=== PATIENT | female | born 2000 | race Caucasian/White ===

== ENCOUNTER 2022-05-04 08:08 | Inpatient (IN) ==
[2022-05-04] MEDS ORDERED: LIDOCAINE 1% LOCAL 20 ML VIAL INFIL PRN (08:37)
[2022-05-04] MEDS ORDERED: OXYTOCIN 30 UNITS/500 ML BAG IV PRN ×3 (08:37→19:09)
--- NOTE | 2022-05-04 09:11 | History & Physical Report ---
Date of Service May 04, 2022 Assessment & Plan (1) Encounter for induction of labor: (2) Anxiety: (3) Tobacco smoking affecting : Plan - Patient admitted to labor and delivery for initiation of medical induction of labor - Patient remains significantly anxious regarding labor, IV placement, and epidural - Unsuccessful Mayo bulb placement yesterday - Patient COREY /-[address] Garrett 05/03/22 - COREY pending today per Dr. Conrad - Irregular contractions, thus oxytocin augmentation of labor will be started per protocol - Once contractions are progressing, will consider ROM - Will anticipate epidural as contractions arise, patient desirous of epidural pain management - Labs pending Admission and Anticipated Discharge Date Admission Date: May 04, 2022 History of Present Illness Chief Complaint: Induction of Labor Primary Care Provider: Link Gibson DO Subjective: Geovany is a 22 year old female currently at 40 5/7 determined by LMP 07/23/21 who presents to L&D for induction of labor. Mayo bulb was attempted last evening 05/03/22 but was unable to be completed d/t patient anxiety. Patient has a history of bipolar depression and anxiety w/ no active home management. Today, patient notes ongoing anxiety regarding labor. Complications: hx of smoking, hx of drug abuse (clean x 3 years) Reason for Induction/: post-date Movement: Yes Fluid Loss/ROM: No Bloody show/discharge: No External FHT and uterine monitor: Category 1, tracing reactive, good FHT variability (accelerations w/o decelerations), random contractions Last OB appointment: 05/01/22, regular care [employer] Hx: No abnormal paps, No hx of STIs Labs: Blood Type: A+ Antibody Screen: Negative Hg/Hct (today): Pending WBC/Plt (today): Pending Rubella: Immune RPR: Non-reactive Gonorrhea: Negative Chlamydia: Negative HIV: Negative HbSAg: Negative GBS: Negative Cff-DNA: Not performed Cf-SMA: Not performed ROS: - Denies fever, chills, sweats - Denies dyspnea or pleuritic pain - Denies chest pain, palpitations, or pressure - Denies breast pain - Denies dysuria - Denies headache or visual changes Allergies Allergy/AdvReac Type Severity Reaction Status Date / Time Iodinated Contrast Media Allergy Severe Anaphylaxis Verified 05/04/22 08:25 iodine Allergy Severe Anaphylaxis Verified 05/04/22 08:25 ondansetron [From Zofran] Allergy Severe Difficulty Verified 05/04/22 08:25 Breathing Home Medications Medication Instructions Recorded Confirmed Type albuterol sulfate 90 mcg/actuation 2 inh inhalation Q4H PRN shortness 05/13/20 05/01/22 Rx aerosol inhaler of breath or wheezing #1 ea prenat.vits,momo,[id number] 1 tab PO DAILY 09/17/21 05/01/22 History Patient History Medical History (Updated 05/04/22 @ 09:04 by Devi Doyle DO) Anxiety No meds- hx of meds in past Asthma seasonal allergy induced Cough Depression no meds at this time- used meds in past. 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) GERD (gastroesophageal reflux disease) Tums as needed Tachycardia no meds Surgical History History of tonsillectomy and adenoidectomy Family History Father WPW (Hkxwb-Tcfcgcozl-Oumwj syndrome) Sister Murmur Endometriosis Mother Polycystic ovarian syndrome Grandmother (Maternal) Breast cancer great GM Other No pertinent family history Denies family history of Ovarian cancer Colorectal cancer Social History (Updated 05/04/22 @ 08:24 by Abigail Crouch, RN) Smoking Status: Current every day smoker Tobacco Type: E-cigarettes / Vaping Cigarettes Per Day: Daily; Hx Alcohol Use: No Hx Substance Use: Yes Prescribed Medications: Former Misuse of Rx Meds and Marijuana Last Used Substance Other:: September 2021- meth Marijuana used March 2022 Substance Use Type Other:: Last used today Preferred Language: Italian marital status: Single marital status details: david Lam(24) [phone] not involved Current Living Situation: Alone Current Living Situation Comment: lives alone, dog, cat-fob changing litter current occupational status: employed current occupation: [employer] m[employer] How many Children do You have: 0 Feels Safe at Home: Yes Physical Exam Physical Exam: General: Alert, oriented. No acute distress. Cardiac: Regular rate and rhythm, no murmurs/rubs/gallops. Respiratory: Clear to auscultation bilaterally a/p, no wheezes/rales/rhonchi. No increased work of breathing. Symmetrical chest rise. No respiratory distress. Abdomen: Gravid; reactive FHTs; Position: Vertex by Marquez Maneuver Pelvic: COREY pending per Dr. Conrad Lower Extremities: No lower extremity edema or swelling. No deep calf pain. Patito's negative bilaterally. Results & Data ([facility]) Vital Signs (Past 12 Hours) Vital Signs Pulse BP 05/04/22 08:17 102 H 130/81 Code Status & VTE Plan VTE Prophylaxis Plan VTE Prophylaxis will be ordered: Yes Resident Activity Tracking Resident Involvement: Resident Care Provided Care Provided: OB Delivery
[2022-05-04 10:12] LABS: Hematocrit (blood only) 31.1 % (37.0-47.0); Hemoglobin 10.8 g/dl (12.0-16.0); Mean Corpuscular Hemoglobin 28.9 pg (25.0-34.0); Mean Corpuscular Hgb Conc 34.7 g/dL (32.0-36.0); Mean Corpuscular Volume 83.2 fL (80.0-100.0); Platelet Count 209 K/uL (130-400); RDW Coefficient of Variation 13.2 % (11.5-14.5); RDW Standard Deviation 40.1 fL (36.4-46.3); Red Blood Count 3.74 M/uL (4.20-5.40); White Blood Count 8.06 K/ul (4.8-10.8)
[2022-05-04] MEDS: LACTATED RINGER'S 1,000 ML IV PRN ×2 (10:27→15:23)
[2022-05-04] MEDS ORDERED: ACETAMINOPHEN 325 MG TAB PO PRN ×2 (11:37→19:09)
[2022-05-04 13:06] LABS: Amphetamines+Metham, Urine Neg (Neg); Barbiturates, Urine Neg (Neg); Benzodiazepine, Urine Neg (Neg); Cocaine, Urine Neg (Neg); MDMA (Ecstacy), Urine Neg (Neg); Methadone, Urine Neg (Neg); Opiate, Urine Neg (Neg); Phencyclidine, Urine Neg (Neg)
[2022-05-04] MEDS ORDERED: fentaNYL citrate 100 MCG/2 ML VIAL ONE (14:51)
[2022-05-04] MEDS ORDERED: BUPIVACAINE 0.25% 30 ML VIAL ONE (14:51)
[2022-05-04] MEDS ORDERED: LIDOCAINE 2%/EPINEPHRINE 1:200,000 20 ML SDV ONE (14:51)
[2022-05-04] MEDS ORDERED: SODIUM CHLORIDE 0.9% INJ 10 ML VIAL ONE (14:51)
[2022-05-04] MEDS ORDERED: ePHEDrine sulfate 50 MG/ML AMP ONE (14:51)
[2022-05-04] MEDS ORDERED: fentaNYL 2MCG/ML ROPIVACAINE 1.25MG/ML 100 ML BAG EPI ONE (14:52)
--- NOTE | 2022-05-04 15:17 | Anesthesiology Consultation ---
Date of Service May 04, 2022 Assessment & Plan Chart Review Chart Review: Acceptable Risk for Labor Epidural ASA ASA2 Proposed Anesthesia Anesthesia Type: Labor Epidural Risk / Benefits Reviewed With: PT / POA / Parent / Guardian, Accepts Plan and Informed Consent Obtained History Height/Weight Height: 5 ft 7 in Weight: 67.132 kg Allergies Allergy/AdvReac Type Severity Reaction Status Date / Time Iodinated Contrast Media Allergy Severe Anaphylaxis Verified 05/04/22 08:25 iodine Allergy Severe Anaphylaxis Verified 05/04/22 08:25 ondansetron [From Zofran] Allergy Severe Difficulty Verified 05/04/22 08:25 Breathing Medications Home Medications Medication Instructions Recorded Confirmed Last Taken albuterol sulfate 90 mcg/actuation 2 inh inhalation Q4H PRN shortness 05/13/20 05/04/22 Unknown aerosol inhaler of breath or wheezing #1 ea prenat.vits,momo,izm-[id number]-wkpan 1 tab PO DAILY 09/17/21 05/04/22 05/01/22 Active Medications Generic Name Dose Route Start Last Admin Trade Name Freq PRN Reason Stop Dose Admin Acetaminophen 650 mg 05/04/22 11:37 05/04/22 12:01 Acetaminophen 325 Mg Tab PO 06/03/22 11:36 650 mg Q4H PRN Administration Headache Lactated Ringer's 1,000 mls @ 125 mls/hr 05/04/22 08:37 05/04/22 15:23 Lr IV 05/06/22 08:36 999 mls/hr .Q8H PRN Administration L&D Protocol Protocol Oxytocin 30 units in 500 mls @ 14 mls/hr 05/04/22 09:51 05/04/22 14:45 Pitocin IV 05/06/22 09:50 0.84 units/hr .Q24H PRN 14 mls/hr Labor Induction/Augmentation Titration Protocol 0.84 UNITS/HR NPO Date Last Intake of Fluids: 05/04/22 Time Last Intake of Fluids: 14:30 Date Last Intake of Solids: 05/04/22 Time Last Intake of Solids: 23:59 Past Medical History Medical History Anxiety No meds- hx of meds in past Asthma seasonal allergy induced Cough Depression no meds at this time- used meds in past. 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) GERD (gastroesophageal reflux disease) Tums as needed Tachycardia no meds Exercise / Class Metabolic Activity II 4-5 Yardwork/Stairs/Walk up hill Past Family History Family History Father WPW (Kyqtv-Yvwalknqt-Cavdn syndrome) Sister Murmur Endometriosis Mother Polycystic ovarian syndrome Grandmother (Maternal) Breast cancer great GM Other No pertinent family history Denies family history of Ovarian cancer Colorectal cancer Past Surgical History Surgical History History of tonsillectomy and adenoidectomy Past Anesthesia History No Hx of Anesthesia Complications and No Family Hx of Anesthesia Complications History of PONV No Hx of PONV and No Hx of Motion Sickness Social History Smoking Status: Current every day smoker tobacco type: e-cigarettes Smoking cigarettes per day: Daily Hx Alcohol Use: No Hx Substance Use: Yes substance use type: marijuana and methamphetamine Substance Use Type Other:: Marijuana last used 03/2022; Meth September 2021 Last Used Substance Other:: September 2021- meth Marijuana used March 2022 Physical Exam Vital Signs Last Vital Signs Temp 37.0 C 05/04/22 14:45 Pulse 72 05/04/22 15:11 Resp 18 05/04/22 14:45 BP 113/68 05/04/22 14:34 Pulse Ox 100 05/04/22 15:11 ENMT Mouth: no TMJ abnormality Thyromental Distance: > or= 3.5 Finger Breadths Mallampati Class: II Neck normal visual inspection and trachea midline; neck extension not limited Respiratory normal respiratory effort Auscultation: lungs clear to auscultation bilaterally Cardiovascular Rate/Rhythm: regular rate and regular rhythm Heart Sounds: no murmur Musculoskeletal Spine: normal cervical ROM Extremities: full ROM of extremities Neurologic moves all extremities Psychiatric Orientation: alert and oriented x 3 Testing Laboratory Results 05/04/22 09:57
[2022-05-04] MEDS ORDERED: NALOXONE HCL 1 MG in SODIUM CHLORIDE 0.9% 1000ML 1,000 ML IV PRN (15:41)
[2022-05-04] MEDS ORDERED: PROMETHAZINE HCL 25 MG in SODIUM CHLORIDE 0.9% 50 ML IV PRN (15:41)
[2022-05-04] MEDS ORDERED: METOCLOPRAMIDE HCL 20 MG in SODIUM CHLORIDE 0.9% 50 ML IV PRN (15:41)
[2022-05-04] MEDS ORDERED: diphenhydrAMINE 50 MG/ML VIAL IV PRN (15:41)
[2022-05-04] MEDS ORDERED: NALOXONE HCL 0.4 MG/1 ML VIAL/CARP IV PRN (15:41)
[2022-05-04] MEDS ORDERED: fentaNYL 2MCG/ML ROPIVACAINE 1.25MG/ML 100 ML BAG EPI PRN (15:41)
[2022-05-04] MEDS ORDERED: ePHEDrine sulfate 50 MG/ML AMP IV PRN (15:41)
[2022-05-04] MEDS ORDERED: NALBUPHINE HCL INJ 10 MG/ML AMP IV PRN (15:41)
--- NOTE | 2022-05-04 16:04 | Labor Progress Brief Note ---
Date of Service May 04, 2022 Subjective Comfortable w/ epidural Assessment & Plan (1) Encounter for induction of labor: Plan: 22 yo G1 at 40 5/7 wga admitted for IOL VSS Fetus cat 1 Labor - pit at 14, now s/p arom GBS neg epidural in place Admission and Anticipated Discharge Date Admission Date: May 04, 2022 Physical Exam Genitourinary: Manual OB Exam: + cervical dilation 4 cm, + cervical effacement 70%, + station -2 and + amniotic fluid (arom clear) OB Exam Monitor Tracing: + external FHT monitor used, + external uterine monitor used (q3) and + category I (130/mod/+accel/-decel) Results & Data ([facility]) Vital Signs (Past 12 Hours) Vital Signs Temp Pulse Resp BP Pulse Ox 05/04/22 14:45 98.6 F 18 05/04/22 08:18 98.2 F 16 05/04/22 16:01 75 123/78 05/04/22 15:59 81 114/74 05/04/22 15:56 74 100 05/04/22 15:57 73 111/72 05/04/22 15:55 76 112/70 05/04/22 15:53 74 120/69 05/04/22 15:51 100 05/04/22 15:51 68 05/04/22 15:51 68 112/59 L 05/04/22 15:49 67 99/56 L 05/04/22 15:47 76 91/68 L 05/04/22 15:48 72 103/57 L 05/04/22 15:46 67 100 05/04/22 15:45 70 119/72 05/04/22 15:43 74 105/55 L 05/04/22 15:41 75 101/55 L 100 05/04/22 15:38 74 108/57 L 05/04/22 15:36 92 H 99 05/04/22 15:35 96 H 154/74 H 05/04/22 15:31 99 H 100 05/04/22 15:26 105 H 99 05/04/22 15:21 84 100 05/04/22 15:16 76 100 05/04/22 15:11 72 100 05/04/22 14:34 104 H 113/68 05/04/22 13:34 63 118/78 05/04/22 12:34 68 105/67 05/04/22 11:34 66 107/60 05/04/22 11:00 18 05/04/22 11:00 98.1 F 18 05/04/22 10:27 72 122/76 05/04/22 08:17 102 H 130/81 Coding Level of Care Code None Diagnoses Encounter for induction of labor Z34.90
--- NOTE | 2022-05-04 19:00 | Delivery Summary ---
Vaginal Delivery Summary Date of Service May 04, 2022 Vaginal Delivery Summary [facility] PREOPERATIVE DIAGNOSIS: 1. Single intrauterine at 40 5/7 wga 2. Induction of labor 3. History of drug use POSTOPERATIVE DIAGNOSIS: 1. Single intrauterine at 40 5/7 wga 2. Induction of labor 3. History of drug use 4. Delivered PROCEDURE: 1. Normal spontaneous vaginal delivery. SURGEON: Jovanna Conrad MD ANESTHESIA: Epidural. ESTIMATED BLOOD LOSS: 300 mL FLUIDS: Continuous LR. URINE OUTPUT: None. COMPLICATIONS: None. CONDITION: Stable. INDICATIONS: 22 yo G1 at 40 5/7 wga presented for induction of labor due to post-dates. Induction was begun with kendall bulb and pitocin. Following kendall bulb expulsion, she received an epidural for pain control. She underwent arom and continued to progress to complete and desired to push. FINDINGS: A viable female , weight pending with Apgars of 8 and 9 at 1 and 5 minutes respectively. SPECIMEN: Cord blood OPERATIVE REPORT: The patient progressed to 10 cm, 100% effaced and +2 station, pushed over intact perineum with anesthesia to deliver a viable female , weight and Apgars as above. Head of delivered in SHILPA position with compound left hand. Body and shoulders were delivered without difficulty. was delivered to maternal abdomen and nursing staff. Delayed cord clamping was performed for 60 seconds. Cord was clamped and cut. Cord blood was obtained. Placenta delivered spontaneously intact with 3-vessel cord. IV oxytocin and fundal massage were given for excellent hemostasis. Vagina, cervix, perineum, and placenta were inspected. Hemostatic periclitoral abrasions were noted and not needed to be repaired. A right vaginal abrasion was also noted but not needed to be repaired. Sponge and needle counts correct x2. No sponges were left behind. Mother and stable in immediate period. [facility] Vaginal Delivery Charge Vaginal Delivery Codes: 13823 global code for the antepartum, delivery, and post - Delivery Type Details: [facility]
[2022-05-04] MEDS ORDERED: HYDROCORTISONE ACETATE 25 MG SUPP PR PRN (19:09)
[2022-05-04] MEDS ORDERED: DIPHTHERIA/TETANUS/PERTUSSIS 0.5mL SYR/VIAL (Age 7+yrs) IM ONE (19:09)
[2022-05-04] MEDS ORDERED: BENZOCAINE 20% AER SPR 82.5 GM CAN EXT PRN (19:09)
[2022-05-04] MEDS ORDERED: ALBUTEROL HFA 8 GM INHALER INH PRN (19:09)
[2022-05-04] MEDS ORDERED: bisacodyL 10 MG SUPP PR PRN (19:09)
--- NOTE | 2022-05-04 19:41 | Anesthesia Procedure Note ---
Date of Service May 04, 2022 Anesthesia Post Epidural Note Vital Signs Vital Signs: Temp Pulse Resp BP Pulse Ox 37.1 C 88 22 136/71 100 05/04/22 17:00 05/04/22 19:39 05/04/22 18:30 05/04/22 19:39 05/04/22 18:41 Notes Mental Status: alert / awake / arousable and participated in evaluation Nausea / Vomiting: adequately controlled Pain: adequately controlled Airway Patency, RR, SpO2: stable & adequate BP & HR: stable & adequate Hydration State: stable & adequate Neuraxial Anesthesia: was administered and sensory block is resolving Anesthetic Complications: no major complications apparent and Pt Satisfied with anesthetic care Epidural: Removed without complications and With tip intact
[2022-05-04] MEDS: IBUPROFEN 600 MG TAB PO PRN (23:40)
[2022-05-05] MEDS: DOCUSATE SODIUM 100 MG CAP PO SCH ×3 (00:25→22:01)
[2022-05-05] MEDS: IBUPROFEN 600 MG TAB PO PRN ×4 (04:38→22:02)
--- NOTE | 2022-05-05 04:53 | Obstetrical Progress Note ---
Date of Service May 05, 2022 Assessment & Plan (1) care following vaginal delivery: (2) Tobacco smoking affecting : (3) Chronic mental illness: Plan - Overall, feeling well and eating well today - feeding going well without concern - Urinating and passing gas appropriately - Ambulating well in room - Pain controlled w/ Ibuprofen and Tylenol - Hgb 10.8 on 05/04 - Vitals stable and wnl - Routine PP care progressing well - complicated by tobacco and drug use, UDS + for marijuana only - Anticipate discharge @ 24-48 hours PP - Recommending f/u outpatient in 6 weeks Admission and Anticipated Discharge Date Admission Date: May 04, 2022 Supervising Physician Co-Signing Physician Notes Resident Physician Supervision Note: I interviewed and examined the patient. Discussed with Dr. Doyle and agree with findings and plan as documented in the note. Any exceptions or clarifications are listed here: PP1 s/p , doing well. VSS, exam benign and wnl. Continue rout pp care Documented By: Jovanna Conrad MD Aureliano Armenta is a 22F who is PPD #1 following delivery at 40 5/7. She reports feeling well overall this morning. - Ambulation - well throughout room - Voiding/Mayo - independent voids, no dysuria or pressure - Gas/Stool - passing gas, no bowel movement - Diet - regular, no nausea or emesis - Lochia - diminishing, heavy amount (per patient) - Feeding Type - breast feeding - Pain Level - 3/10, controlled with Ibuprofen/Tylenol Review of Systems - Denies fever, chills, sweats - Denies shortness of breath, difficulty breathing, chest pain, palpitations, ch est pressure. - Denies breast pain. - Denies dysuria. - Denies headache or changes in vision. Physical Exam Physical Exam: General: Alert, oriented. No acute distress. Cardiac: RRR, normal S1/S2, no murmurs/rubs/gallops. Respiratory: Non-labored, CTAB, no wheezes/rales/rhonchi. Symmetric chest rise. Abdomen: Soft, nontender, nondistended. Bowel sounds present. Uterus: Uterine fundus firm, palpable 2 cm below umbilicus. Lower Extremities: No lower extremity edema or swelling. No deep calf pain. Patito's negative bilaterally. Results & Data ([facility]) Vital Signs (Past 12 Hours) Vital Signs Temp Pulse Pulse Resp BP BP Pulse Ox 05/05/22 04:36 36.5 C 74 17 104/71 99 05/04/22 23:25 36.8 C 80 20 104/68 99 05/04/22 19:43 36.7 C 20 05/04/22 18:30 22 05/04/22 17:30 18 05/04/22 17:15 18 05/04/22 20:41 79 05/04/22 20:41 116/55 L 05/04/22 20:11 78 112/59 L 05/04/22 19:39 88 136/71 05/04/22 19:24 100 H 138/74 05/04/22 19:09 105 H 122/67 05/04/22 18:54 127 H 144/70 H 05/04/22 18:52 136 H 144/83 H 05/04/22 18:41 161 H 100 05/04/22 18:37 123 H 141/96 H 05/04/22 18:36 149 H 100 05/04/22 18:31 139 H 100 05/04/22 18:26 111 H 100 05/04/22 18:24 82 131/82 05/04/22 18:21 92 H 100 05/04/22 18:16 81 100 05/04/22 18:00 18 05/04/22 18:00 18 05/04/22 18:11 77 100 05/04/22 18:06 89 100 05/04/22 18:07 79 128/76 05/04/22 18:01 73 100 05/04/22 17:56 80 100 05/04/22 17:52 82 128/76 05/04/22 17:51 86 100 05/04/22 17:46 77 100 05/04/22 17:41 73 100 05/04/22 17:38 67 113/74 05/04/22 17:36 67 100 05/04/22 17:31 74 100 05/04/22 17:26 78 100 05/04/22 17:24 81 128/60 05/04/22 17:21 58 L 100 05/04/22 17:16 71 100 05/04/22 17:11 60 100 05/04/22 17:07 60 100/59 L 05/04/22 17:06 59 L 100 05/04/22 17:01 64 100 05/04/22 17:00 20 05/04/22 17:00 37.1 C 20 05/04/22 16:56 62 100 05/04/22 16:51 69 100 O2 Del Method 05/05/22 04:36 Room Air 05/04/22 23:25 Room Air 05/04/22 19:43 05/04/22 18:30 05/04/22 17:30 05/04/22 17:15 05/04/22 20:41 05/04/22 20:41 05/04/22 20:11 05/04/22 19:39 05/04/22 19:24 05/04/22 19:09 05/04/22 18:54 05/04/22 18:52 05/04/22 18:41 05/04/22 18:37 05/04/22 18:36 05/04/22 18:31 05/04/22 18:26 05/04/22 18:24 05/04/22 18:21 05/04/22 18:16 05/04/22 18:00 05/04/22 18:00 05/04/22 18:11 05/04/22 18:06 05/04/22 18:07 05/04/22 18:01 05/04/22 17:56 05/04/22 17:52 05/04/22 17:51 05/04/22 17:46 05/04/22 17:41 05/04/22 17:38 05/04/22 17:36 05/04/22 17:31 05/04/22 17:26 05/04/22 17:24 05/04/22 17:21 05/04/22 17:16 05/04/22 17:11 05/04/22 17:07 05/04/22 17:06 05/04/22 17:01 05/04/22 17:00 05/04/22 17:00 05/04/22 16:56 05/04/22 16:51 Resident Activity Tracking Resident Involvement: Resident Care Provided Care Provided: OB Delivery
[2022-05-05] MEDS: FERROUS SULFATE 325 MG TAB PO SCH (08:17)
[2022-05-05] MEDS: PRENATAL VITAMIN 1 TAB PO SCH (08:17)
[2022-05-05] MEDS ORDERED: bisacodyL 5 MG TABEC PO SCH (20:00)
--- NOTE | 2022-05-06 05:34 | Obstetrical Progress Note ---
Date of Service May 06, 2022 Assessment & Plan (1) care following vaginal delivery: (2) Tobacco smoking affecting : (3) Chronic mental illness: Plan - Overall, feeling well and eating well today - feeding going well without concern - Urinating and passing gas appropriately - Ambulating well in room - Pain controlled w/ Ibuprofen and Tylenol - Hgb 10.8 on 05/04 - Vitals stable and wnl - Routine PP care progressing well - complicated by tobacco and drug use, UDS + for marijuana only - Anticipate discharge @ 24-48 hours PP - Recommending f/u outpatient in 6 weeks Admission and Anticipated Discharge Date Admission Date: May 04, 2022 Supervising Physician Co-Signing Physician Notes Resident Physician Supervision Note: I interviewed and examined the patient. Discussed with Dr. Doyle and agree with findings and plan as documented in the note. Any exceptions or clarifications are listed here: Doing well. Is 48 hours from delivery and plan d/c. Instructions reviewed. UDS positive for MJ so baby may not be d/c. can go to [facility]. Documented By: Mile Robin MD, FACOG Subjective Geovany is a 22F who is PPD #2 following delivery at 40 5/7. She reports feeling well overall this morning. - Ambulation - well throughout room - Voiding/Mayo - independent voids, no dysuria or pressure - Gas/Stool - passing gas, no bowel movement - Diet - regular, no nausea or emesis - Lochia - diminishing, light amount - Feeding Type - bottle feeding - Pain Level - 2/10, controlled with Ibuprofen/Tylenol Review of Systems - Denies fever, chills, sweats - Denies shortness of breath, difficulty breathing, chest pain, palpitations, chest pressure. - Denies breast pain. - Denies dysuria. - Denies headache or changes in vision. Physical Exam Physical Exam: General: Alert, oriented. No acute distress. Cardiac: RRR, normal S1/S2, no murmurs/rubs/gallops. Respiratory: Non-labored, CTAB, no wheezes/rales/rhonchi. Symmetric chest rise. Abdomen: Soft, nontender, nondistended. Bowel sounds present. Uterus: Uterine fundus firm, palpable 2 cm below umbilicus. Lower Extremities: No lower extremity edema or swelling. No deep calf pain. Patito's negative bilaterally. Results & Data ([facility]) Vital Signs (Past 12 Hours) Vital Signs Temp Pulse Resp BP Pulse Ox O2 Del Method 05/05/22 23:45 36.7 C 85 18 123/78 100 Room Air Resident Activity Tracking Resident Involvement: Resident Care Provided Care Provided: OB Delivery
[2022-05-06] MEDS: PRENATAL VITAMIN 1 TAB PO SCH (08:12)
[2022-05-06] MEDS: FERROUS SULFATE 325 MG TAB PO SCH (08:13)
[2022-05-06] MEDS: DOCUSATE SODIUM 100 MG CAP PO SCH (08:13)
[2022-05-07 09:56] LABS: Marijuana Quant, GCMS Urine 29 ng/mL (<5)
== END 2022-05-06 14:25 | disposition home or self-care (01) | DRG 806 ==
LOC: 4S1 08:08 → 4E2 22:25

== ENCOUNTER 2023-05-21 07:27 | Inpatient (IN) ==
[2023-05-21] MEDS ORDERED: LIDOCAINE 1% LOCAL 20 ML VIAL INFIL PRN (08:43)
--- NOTE | 2023-05-21 08:47 | History & Physical Report ---
Date of Service May 21, 2023 Assessment & Plan (1) 40 weeks gestation of : (2) Bipolar disorder: Plan cervix not favorable. Discussed the options of cytotec vs. kendall bulb (had some issues with this in last ). She is agreeable to kendall and this was placed without difficulty. fetus category one. Plan to let her settle into the kendall, was very crampy after placement, and then start cytotec. patient agrees to urine drug screen. Denies any use in this . Anticipate . Desires epidural. Admission and Anticipated Discharge Date Admission Date: May 21, 2023 History of Present Illness Chief Complaint: iol Primary Care Provider: Link Gibson DO Patient is a 23yowf with iup at 40 2/7 who presents to labor and delivery for iol. Notes good fm. Occasional contractions, no lof/vb. and Delivery Plans Current every day smoker/vaping, prior methamphetamine use 2021 early last preg denies drug use in this Bipolar - follows w/ [place] New FOB Short interval - delivered 04/2022 LSIL pap 06/2022 - needs pp pap Carrier for Addy Padilla *FOB refusing testing- genetic consult (pt not returning calls to schedule, she will need to call if she still wants appt) Abnormal appearing pulmonary artery on Anatomy * Echo (02/09/23@ [facility] [place]) -Cardiac mass appearing somewhat more leftward than typical in some projections -Recommend rpt echo 4wks -Mild right heart dilation and mild flow acceleration across ductal arch -Ok to delivery [place] and consider echo OB Labs: Blood Type A Positive 10/12/22 Antibody Screen NEGATIVE 10/12/22 Hemoglobin 10.9 g/dl (12.0-16.0) L 03/02/23 Hematocrit 33.2 % (37.0-47.0) L 03/02/23 Mean Corpuscular Volume 83.8 fL (80.0-100.0) 11/27/22 Platelet Count 241 K/uL (130-400) 11/27/22 Rubella IgG Antibody Immune (Immune) 10/12/22 Rapid Plasma Reagin Nonreactive (Nonreactive) 10/12/22 Hepatitis B Surface Antigen. NON-REACTIVE (NON-REACTIVE) 10/12/22 Hepatitis C Antibody (EIA) NON-REACTIVE (NON-REACTIVE) 10/12/22 HIV (1&2) Ag and Ab Confirmation NON-REACTIVE (NON-REACTIVE) 10/12/22 Glucose 1 Hour 50 gm Load 104 mg/dl (70-130) 03/02/23 OB Optional Labs: Chlamydia trachomatis RNA Not Detected (NotDetected) 10/12/22 Neisseria gonorrhoeae RNA Not Detected (NotDetected) 10/12/22 Thyroid Stimulating Hormone (TSH) 2.186 uIu/ml (0.300-4.500) 03/01/23 gbs neg low risk panorama carrier Addy Padilla Allergies Allergy/AdvReac Type Severity Reaction Status Date / Time Iodinated Contrast Media Allergy Severe Anaphylaxis Verified 05/20/23 11:00 iodine Allergy Severe Anaphylaxis Verified 05/20/23 11:00 ondansetron [From Zofran] Allergy Severe Difficulty Verified 05/20/23 11:00 Breathing Home Medications Medication Instructions Recorded Confirmed Type albuterol sulfate 90 mcg/actuation 2 inh inhalation Q4H PRN shortness 05/13/20 05/21/23 Rx aerosol inhaler of breath or wheezing #1 ea epinephrine 0.3 mg/0.3 mL 0.3 mg (0.3 mL) IM ONCE PRN 05/11/22 05/21/23 Rx injection, auto-injector (EpiPen anaphylaxis #2 ea 2-Andrea) lurasidone [Latuda] 40 mg PO DAILY 11/09/22 05/21/23 History vit no.[id number] 1 tab PO DAILY 11/17/22 05/21/23 History [ Plus Vitamin-Mineral] Patient History Medical History (Updated 05/21/23 @ 08:55 by Mile Robin MD, FACOG) Endometritis following delivery Retained products of conception after delivery without hemorrhage but with other complication Drug abuse during denies use in current Migraine with aura 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 Asthma seasonal allergy induced Surgical History S/P dilation and curettage D&E 1mo after deliv History of tonsillectomy and adenoidectomy Family History Father WPW (Cyfjc-Njxwcmutc-Pangz syndrome) Sister Murmur Endometriosis Mother Polycystic ovarian syndrome Grandmother (Maternal) Breast cancer great GM Other No pertinent family history Denies family history of Ovarian cancer Colorectal cancer Social History Smoking Status: Current every day smoker Tobacco Type: E-cigarettes / Vaping Second Hand Exposure: No; Do You Dip or Chew Tobacco: No; Hx Alcohol Use: No Hx Substance Use: Yes Prescribed Medications: Former Misuse of Rx Meds and Marijuana Last Used Substance Other:: September 2021- meth Marijuana used March 2022 Substance Use Type Other:: Marijuana last used 03/2022; Meth September 2021 Preferred Language: Divehi Communication Ability: Effective Pull Out Operator Required: No Beliefs That Will Affect Care: None marital status: Single marital status details: Ruth paredes grandmother - [phone] Current Living Situation: Family Current Living Situation Comment: boyfriend, daughter, dog, cat(boyfriend litter changing) current occupational status: employed current occupation: Corner room How many Children do You have: 0 Feels Safe at Home: Yes Safety Concerns: Feels Safe At This Time Assistive Devices: None OB History Past Pregnancies Del. Date GA wks Lbr Lgth wt Sex Type del Anes Place Del Prov ? Comment 05/04/22 40 7lbs 5.0ozs F E pidural [facility] Dr. Anamaria Damon [employer] OFF[employer] History as noted in hpi Physical Exam Constitutional: WD/WN, vitals as above Gastrointestinal (Abdomen): soft, gravid, nt efw 7-8# Psychiatric: A+Ox3, euthymic affect Genitourinary: cx--1/50/-2/posterior/mid toco--pedrito efm--130s wtih mod variability, accels to 150s, no decels verbal permission given for placement of Kendall--speculum placed, kendall placed through cervix, filled with 30cc of sterile saline, tolerated well. Results & Data Vital Signs (Past 12 Hours) Vital Signs Temp Pulse Resp BP Pulse Ox 05/21/23 08:05 87 98 05/21/23 08:00 106 H 98 05/21/23 07:55 92 H 98 05/21/23 07:52 112 H 18 99 05/21/23 07:50 112 H 99 05/21/23 07:46 107 H 114/70 05/21/23 07:45 98 H 99 05/21/23 07:40 106 H 97 05/21/23 07:35 16 05/21/23 07:35 37.1 C 16 Coding Level of Care Code None Diagnoses 40 weeks gestation of Z3A.40 Bipolar disorder F31.9
[2023-05-21] MEDS: LACTATED RINGER'S 1,000 ML IV PRN (09:04)
[2023-05-21 09:17] LABS: Hematocrit (blood only) 28.8 % (37.0-47.0); Hemoglobin 9.3 g/dl (12.0-16.0); Mean Corpuscular Hemoglobin 24.4 pg (25.0-34.0); Mean Corpuscular Hgb Conc 32.3 g/dL (32.0-36.0); Mean Corpuscular Volume 75.6 fL (80.0-100.0); Mean Platelet Volume 11.6 fL (9.4-12.4); Platelet Count 243 K/uL (130-400); RDW Coefficient of Variation 14.1 % (11.5-14.5); RDW Standard Deviation 38.2 fL (36.4-46.3); Red Blood Count 3.81 M/uL (4.20-5.40); White Blood Count 12.01 K/ul (4.8-10.8)
[2023-05-21] MEDS ORDERED: SODIUM CHLORIDE 0.9% 250 ML IV PRN (09:28)
[2023-05-21 09:40] LABS: Amphetamines+Metham, Urine Neg (Neg); Barbiturates, Urine Neg (Neg); Benzodiazepine, Urine Neg (Neg); Cocaine, Urine Neg (Neg); MDMA (Ecstacy), Urine Neg (Neg); Marijuana, Urine Neg (Neg); Methadone, Urine Neg (Neg); Opiate, Urine Neg (Neg); Phencyclidine, Urine Neg (Neg)
[2023-05-21] MEDS: OXYTOCIN 30 UNITS/NSS 30 UNITS/500 ML BAG IV PRN (10:17)
--- NOTE | 2023-05-21 14:44 | Labor Progress Brief Note ---
Date of Service May 21, 2023 Subjective Reporting pain in bladder - feels like she needs to urinate, but does not need to go. Gets worse with contractions. FHT Cat 1 [place] Q 2 SVE - attempted, difficult exam, station feels approx 0 to +1, but unable to get in far enough to examine cervix - suspect still posterior. Limited ultrasound shows cephalic presentation. Bladder scan 63cc. On palpation of abdomen, examination of the area that hurts is not tender - unable to elicit. Suspect pain is baby beginning to move into pelvis/engage. Suggested epidural when she desires, and will attempt to get better exam of cervix after epidural. Assessment & Plan Admission and Anticipated Discharge Date Admission Date: May 21, 2023 Results & Data Vital Signs (Past 12 Hours) Vital Signs Temp Pulse Resp BP Pulse Ox 05/21/23 13:02 79 111/60 05/21/23 12:12 73 108/56 L 05/21/23 11:15 83 99/51 L 05/21/23 11:00 18 05/21/23 11:00 37.1 C 18 05/21/23 10:19 68 115/63 05/21/23 08:05 87 98 05/21/23 08:00 106 H 98 05/21/23 07:55 92 H 98 05/21/23 07:52 112 H 18 99 05/21/23 07:50 112 H 99 05/21/23 07:46 107 H 114/70 05/21/23 07:45 98 H 99 05/21/23 07:40 106 H 97 05/21/23 07:35 16 05/21/23 07:35 37.1 C 16 Coding Level of Care Code None
--- NOTE | 2023-05-21 17:00 | Anesthesiology Consultation ---
Date of Service May 21, 2023 Assessment & Plan Chart Review Chart Review: Patient NOT seen in Pre Admission Testing and Acceptable Risk for Labor Epidural Consults Requested none ASA ASA2 Proposed Anesthesia Anesthesia Type: Labor Epidural Risk / Benefits Reviewed With: PT / POA / Parent / Guardian, Accepts Plan and Informed Consent Obtained History Height/Weight Height: 5 ft 7 in Weight: 87.453 kg Allergies Allergy/AdvReac Type Severity Reaction Status Date / Time Iodinated Contrast Media Allergy Severe Anaphylaxis Verified 05/20/23 11:00 iodine Allergy Severe Anaphylaxis Verified 05/20/23 11:00 ondansetron [From Zofran] Allergy Severe Difficulty Verified 05/20/23 11:00 Breathing Medications Home Medications Medication Instructions Recorded Confirmed Last Taken albuterol sulfate 90 mcg/actuation 2 inh inhalation Q4H PRN shortness 05/13/20 05/21/23 Unknown aerosol inhaler of breath or wheezing #1 ea epinephrine 0.3 mg/0.3 mL 0.3 mg (0.3 mL) IM ONCE PRN 05/11/22 05/21/23 Unknown injection, auto-injector (EpiPen anaphylaxis #2 ea 2-Andrea) lurasidone [Latuda] 40 mg PO DAILY 11/09/22 05/21/23 05/20/23 08:00 vit no.[id number] 1 tab PO DAILY 11/17/22 05/21/23 05/20/23 08:00 [ Plus Vitamin-Mineral] Active Medications Generic Name Dose Route Start Last Admin Trade Name Freq PRN Reason Stop Dose Admin Lactated Ringer's 1,000 mls @ 125 mls/hr 05/21/23 08:43 05/21/23 16:34 Lr IV 05/23/23 08:42 999 mls/hr .Q8H PRN Infusion L&D Protocol Protocol Oxytocin 30 units in 500 mls @ 13 mls/hr 05/21/23 08:45 05/21/23 16:16 Pitocin 30 Units/Nss IV 05/23/23 08:44 0.78 units/hr .Q24H PRN 13 mls/hr Labor Induction/Augmentation Titration Protocol 0.78 UNITS/HR Past Medical History Medical History (Updated 05/21/23 @ 08:55 by Mile Robin MD, FACOG) Endometritis following delivery Retained products of conception after delivery without hemorrhage but with other complication Drug abuse during denies use in current Migraine with aura 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 Asthma seasonal allergy induced Exercise / Class Metabolic Activity II 4-5 Yardwork/Stairs/Walk up hill Past Family History Family History Father WPW (Mrfbq-Ilnelyhad-Ebkrn syndrome) Sister Murmur Endometriosis Mother Polycystic ovarian syndrome Grandmother (Maternal) Breast cancer great GM Other No pertinent family history Denies family history of Ovarian cancer Colorectal cancer Past Surgical History Surgical History S/P dilation and curettage D&E 1mo after deliv History of tonsillectomy and adenoidectomy Past Anesthesia History No Hx of Anesthesia Complications and No Family Hx of Anesthesia Complications History of PONV No Hx of PONV and No Hx of Motion Sickness Social History Smoking Status: Current every day smoker tobacco type: e-cigarettes Do You Dip or Chew Tobacco: No Hx Alcohol Use: No Hx Substance Use: Yes substance use type: marijuana and methamphetamine Substance Use Type Other:: Marijuana last used 03/2022; Meth September 2021 Last Used Substance Other:: September 2021- meth Marijuana used March 2022 Physical Exam Vital Signs Last Vital Signs Temp 36.8 C 05/21/23 15:27 Pulse 108 H 05/21/23 16:57 Resp 18 05/21/23 15:27 BP 114/69 05/21/23 16:15 Pulse Ox 100 05/21/23 16:57 ENMT Mouth: no dentition abnormality Thyromental Distance: > or= 3.5 Finger Breadths Mallampati Class: II Neck normal visual inspection Respiratory normal respiratory effort Auscultation: lungs clear to auscultation bilaterally Cardiovascular Rate/Rhythm: regular rate and regular rhythm Psychiatric Orientation: alert Testing Laboratory Results 05/21/23 08:58 Blood Type A Positive 05/21/23 08:58 Antibody Screen NEGATIVE 05/21/23 08:58
[2023-05-21] MEDS: SODIUM CHLORIDE 0.9% PF INJ 10 ML VIAL ONE (17:17)
[2023-05-21] MEDS: LIDOCAINE 2%/EPINEPHRINE 1:200,000 20 ML PF ONE (17:17)
[2023-05-21] MEDS: fentANYL 2 MCG/ML BUPIVacaine 0.125%-NSS 100ML BAG ONE (17:17)
[2023-05-21] MEDS: BUPIVACAINE 0.25% PF 30 ML VIAL ONE (17:17)
[2023-05-21] MEDS ORDERED: SODIUM CHLORIDE 0.9% PF INJ 10 ML VIAL EPI PRN (17:23)
[2023-05-21] MEDS ORDERED: BUPIVACAINE 0.25% PF 30 ML VIAL EPI PRN (17:23)
[2023-05-21] MEDS ORDERED: ONDANSETRON INJ 2 MG/ML 2 ML VIAL IV PRN (17:23)
[2023-05-21] MEDS ORDERED: diphenhydrAMINE 50 MG/ML VIAL IV PRN (17:23)
[2023-05-21] MEDS ORDERED: NALOXONE HCL 0.4 MG/1 ML VIAL/CARP IV PRN (17:23)
[2023-05-21] MEDS ORDERED: LIDOCAINE 2% MPF LOCAL 5 ML VIAL EPI PRN (17:23)
[2023-05-21] MEDS ORDERED: ROPIVACAINE 0.5% PF 5 MG/ML 20 ML VIAL EPI PRN (17:23)
[2023-05-21] MEDS ORDERED: NALBUPHINE HCL 5 MG in SYRINGE 0 ML IV PRN (17:23)
[2023-05-21] MEDS ORDERED: ePHEDrine sulfate 50 MG/ML AMP IV PRN (17:23)
[2023-05-21] MEDS ORDERED: fentaNYL citrate PF 100 MCG/2 ML VIAL EPI PRN (17:23)
[2023-05-21] MEDS ORDERED: NALOXONE HCL 1 MG in SODIUM CHLORIDE 0.9% 1,000 ML IV PRN (17:23)
--- NOTE | 2023-05-21 18:18 | Labor Progress Brief Note ---
Date of Service May 21, 2023 Subjective Delayed note: Comfortable with epidural, FHT Cat 1, Bernard Q 2 SVE 4-5/80/-1, posterior. AROM clear fluid. Assessment & Plan Admission and Anticipated Discharge Date Admission Date: May 21, 2023 Results & Data Vital Signs (Past 12 Hours) Vital Signs Temp Pulse Resp BP Pulse Ox 05/21/23 18:12 95 H 100 05/21/23 18:07 83 100 05/21/23 18:02 77 100 05/21/23 18:01 87 97/52 L 05/21/23 18:00 18 05/21/23 18:00 18 05/21/23 17:57 75 100 05/21/23 17:55 92 H 105/59 L 05/21/23 17:52 80 100 05/21/23 17:47 96 H 100 05/21/23 17:46 100 H 104/56 L 05/21/23 17:42 105 H 100 05/21/23 17:41 37.1 C 92 H 102/57 L 05/21/23 17:37 114 H 100 05/21/23 17:36 106 H 123/56 L 05/21/23 17:32 131 H 100 05/21/23 17:30 118 H 105/51 L 05/21/23 17:27 104 H 100 05/21/23 17:25 89 115/61 05/21/23 17:23 129 H 115/62 05/21/23 17:22 111 H 100 05/21/23 17:21 126 H 115/61 05/21/23 17:20 18 05/21/23 17:20 18 05/21/23 17:19 105 H 113/68 05/21/23 17:17 99 05/21/23 17:17 106 H 05/21/23 17:17 96 H 118/71 05/21/23 17:15 100 H 18 122/75 05/21/23 17:12 104 H 99 05/21/23 17:07 107 H 100 05/21/23 17:02 94 H 100 05/21/23 16:57 108 H 100 05/21/23 16:52 99 H 100 05/21/23 16:47 84 100 05/21/23 16:42 89 100 05/21/23 16:15 82 114/69 05/21/23 15:27 36.8 C 18 05/21/23 15:25 70 103/50 L 05/21/23 14:52 75 110/61 05/21/23 13:02 79 111/60 05/21/23 12:12 73 108/56 L 05/21/23 11:15 83 99/51 L 05/21/23 11:00 18 05/21/23 11:00 37.1 C 05/21/23 10:19 68 115/63 05/21/23 08:05 87 98 05/21/23 08:00 106 H 98 05/21/23 07:55 92 H 98 05/21/23 07:52 112 H 18 99 05/21/23 07:50 112 H 99 05/21/23 07:46 107 H 114/70 05/21/23 07:45 98 H 99 05/21/23 07:40 106 H 97 05/21/23 07:35 16 05/21/23 07:35 37.1 C 16 Coding Level of Care Code None
[2023-05-21] MEDS: fentaNYL citrate PF 100 MCG/2 ML VIAL ONE (18:32)
[2023-05-21] MEDS: fentaNYL citrate PF 100 MCG/2 ML VIAL EPI STA (18:42)
[2023-05-21] MEDS: BUPIVACAINE 0.25% PF 30 ML VIAL EPI STA (18:45)
[2023-05-21] MEDS: LIDOCAINE 2%/EPINEPHRINE 1:200,000 20 ML PF EPI STA (18:45)
[2023-05-21] MEDS: SODIUM CHLORIDE 0.9% PF INJ 10 ML VIAL EPI STA (18:46)
[2023-05-22] MEDS: fentANYL 2 MCG/ML BUPIVacaine 0.125%-NSS 100ML BAG EPI PRN (00:02)
[2023-05-22] MEDS: METHYLERGONOVINE MALEATE 0.2 MG/ML AMP IM ONE (01:07)
--- NOTE | 2023-05-22 01:21 | Delivery Summary ---
Vaginal Delivery Summary Date of Service May 22, 2023 Vaginal Delivery Summary Vaginal Delivery Summary: Pre-delivery diagnoses: 23yo @ 40 3/7, short interval , abnormal pulmonary artery on anatomy scan, bipolar, smoker Post-delivery diagnoses: same, mild shoulder dystocia Procedure: spontaneous vaginal delivery Surgeon: Nayeli Garrett DO Complications: none Findings: Viable male . Apgars: 9/10 . Weight pending, please see nursery records Estimated blood loss: 300ml Description of delivery: The patient progressed to complete with epidural anesthesia. She then began to push. She spontaneously vaginally delivered a viable from the cephalic presentation. The head delivered in SHILPA position. The anterior shoulder did not deliver immediately, therefore patient was repositioned with McRobert's maneuver, then the posterior shoulder delivery was attempted, and then head was allowed to restitute - and this allowed anterior shoulder to deliver (70 seconds after head), followed by the posterior shoulder, followed by the body. No nuchal around neck- however cord was wrapped multiple times around baby's leg. The baby was placed on mother's abdomen and the cord was immediately doubly clamped and cut and the baby was handed off to nursery team for resuscitation - spontaneous cry heard immediately and baby was vigorous. Cord blood was obtained. The placenta was delivered spontaneously intact with a 3-vessel cord. The uterus and vagina were swept of clots and debris. IV pitocin was given. Small initial gush of blood and one dose of methergine was ordered, and then the uterus quickly became firm. The cervix, vagina, and perineum were inspected and no lacerations were noted. Excellent hemostasis was observed. The mother and baby are recovering in stable and good condition in the room. Sponge and instrument counts were correct x 2. I reviewed the events of the shoulder dystocia with patient after delivery, questions answered. Nayeli Garrett DO [facility] Vaginal Delivery Charge Vaginal Delivery Codes: 60734 global code for the antepartum, delivery, and post- Delivery Type Details: [facility]
[2023-05-22] MEDS: OXYTOCIN 30 UNITS/NSS 30 UNITS/500 ML BAG IV PRN (01:27)
[2023-05-22] MEDS ORDERED: HYDROCORTISONE ACETATE 25 MG SUPP PR PRN (01:33)
[2023-05-22] MEDS ORDERED: bisacodyL 10 MG SUPP PR PRN (01:33)
[2023-05-22] MEDS ORDERED: DIPHTHER/TETAN/PERTUS Vaccine (Tdap, Adol/Adult) 0.5mL IM ONE (01:33)
[2023-05-22] MEDS ORDERED: oxyCODONE/ACETAMINOPHEN 5mg/325mg TAB PO PRN (01:33)
[2023-05-22] MEDS ORDERED: OXYTOCIN 30 UNITS/NSS 30 UNITS/500 ML BAG IV PRN (01:33)
[2023-05-22] MEDS ORDERED: EPINEPHrine ADULT AUTO-INJECT 0.3 MG SYR IM PRN (01:33)
[2023-05-22] MEDS ORDERED: ALBUTEROL HFA 8 GM INHALER INH PRN (01:33)
[2023-05-22] MEDS: ePHEDrine sulfate 50 MG/ML AMP ONE (01:36)
[2023-05-22] MEDS: BENZOCAINE 20% SPRY 85 APPLN/85 GM CAN EXT PRN (02:04)
[2023-05-22] MEDS: IBUPROFEN 600 MG TAB PO PRN (02:04)
[2023-05-22 05:04] LABS: Hematocrit (blood only) 31.1 % (37.0-47.0); Hemoglobin 9.9 g/dl (12.0-16.0)
[2023-05-22] MEDS: PRENATAL VITAMIN 1 TAB PO SCH (08:16)
[2023-05-22] MEDS: DOCUSATE SODIUM 100 MG CAP PO SCH (08:16)
[2023-05-22] MEDS: LURASIDONE HCL 20 MG TAB PO SCH (08:17)
--- NOTE | 2023-05-22 12:18 | Anesthesia Procedure Note ---
Date of Service May 22, 2023 Anesthesia Post Epidural Note Vital Signs Vital Signs: Temp Pulse Resp BP Pulse Ox O2 Del Method 37.1 C 89 18 98/63 L 96 Room Air 05/22/23 07:55 05/22/23 07:55 05/22/23 07:55 05/22/23 07:55 05/22/23 07:55 05/22/23 07:55 Pain Intensity Lower Abdomen: Pain Intensity: 5 Notes Mental Status: alert / awake / arousable and participated in evaluation Nausea / Vomiting: adequately controlled Pain: adequately controlled Airway Patency, RR, SpO2: stable & adequate BP & HR: stable & adequate Hydration State: stable & adequate Neuraxial Anesthesia: was administered and sensory block resolved Anesthetic Complications: no major complications apparent and Pt Satisfied with anesthetic care Epidural: Removed without complications and With tip intact
[2023-05-22] MEDS: ACETAMINOPHEN 325 MG TAB PO PRN (14:55)
[2023-05-23 06:19] LABS: Hematocrit (blood only) 25.6 % (37.0-47.0)
--- NOTE | 2023-05-23 08:52 | Obstetrical Progress Note ---
Date of Service May 23, 2023 Assessment & Plan (1) Encounter for assessment: visit type: routine follow-up Qualified Code(s): Z39.2 - Encounter for routine follow-up Plan Doing well. Plan d/c home. Instructions given. Continue routine meds. Day #:: 2 Subjective Ambulation: ambulating normally Voiding: no voiding problems Passing Gas:: Yes Diet Tolerance:: regular diet Lochia:: Small Feeding Type:: bottle feeding Feels sore all over, but doing ok. Ready for d/c. Physical Exam Constitutional WD/WN, vitals as above Respiratory normal respiratory effort, lungs clear to auscultation Cardiovascular RRR, no murmur, no edema Extremities: no calf tenderness and no edema Gastrointestinal (Abdomen) soft, nt, nd ff/nt 1 below u Psychiatric A+Ox3, euthymic affect Results & Data Vital Signs (Past 12 Hours) Vital Signs Temp Pulse Resp BP Pulse Ox O2 Del Method 05/23/23 01:00 36.9 C 72 16 100/65 99 Room Air 05/22/23 20:50 36.9 C 88 16 100/65 99 Room Air
[2023-05-23] MEDS ORDERED: bisacodyL 5 MG TABEC PO SCH (20:00)
== END 2023-05-23 14:00 | disposition home or self-care (01) | DRG 807 ==
LOC: 4S1 07:27 → 4E2 05-22 05:32